=== PATIENT | female | born 1975 | race Hispanic/Latino ===

== ENCOUNTER → 2019-12-24 | Emergency (ER) | payer BC, OTHER ==
[~2019-12-24] VITALS: Ht 157.5 cm; Wt 90.7 kg
--- NOTE | 2019-12-24 11:44 | Emergency Department Note ---
History of Present Illnes History of Present Illness Chief Complaint: COVID PUI History of Present Illness This is a 44 year old female C/O COUGH, FEVER, N/V/D, MUSCLE ACHES, CHILLS, SORE THROAT ALL SYMPTOMS STARTED YESTERDAY. 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 Any updates have been documented here. Past Medical History Recent Fever: Yes Clinical Suspicion of Infectio: Yes New/Unexplained Change in Ment: No Past Medical History: Hypertension Past Surgical History: None Social History Smoking Cessation: Never Smoker Counseling Performed: No Any Illegal Drug Use: No TB Exposure/Symptoms: No Physically hurt or threatened: No Review of Systems Review of Systems Constitutional: Reports as per HPI EENTM: Reports no symptoms Cardiovascular: Reports no symptoms Respiratory: Reports as per HPI Gastrointestinal: Reports as per HPI Genitourinary: Reports no symptoms Musculoskeletal: Reports no symptoms Integumentary: Reports no symptoms Neurological: Reports no symptoms Psychological: Reports no symptoms Endocrine: Reports no symptoms Hematological/Lymphatic: Reports no symptoms Physical Exam Related Data Allergies: Coded Allergies: No Known Allergies (Unverified , 12/24/19) Triage Vital Signs Vital Signs Date Time Temp Pulse Resp B/P (MAP) Pulse Ox O2 Delivery O2 Flow Rate FiO2 12/24/19 11:23 100.5 103 20 138/91 100 Room Air Vital signs reviewed: Yes Physical Exam CONSTITUTIONAL Constitutional: Present well-developed, Present well-nourished HENT HENT: Present normocephalic, Present atraumatic, Present oropharynx clear/moist, Present nose normal HENT L/R: Present left ext ear normal, Present right ext ear normal EYES Eyes: Reports PERRL, Reports conjunctivae normal NECK Neck: Present ROM normal PULMONARY Pulmonary: Present effort normal, Present breath sounds normal CARDIOVASCULAR Cardiovascular: Present regular rhythm, Present heart sounds normal, Present capillary refill normal, Present normal rate GASTROINTESTINAL Abdominal: Present soft, Present nontender, Present bowel sounds normal GENITOURINARY Genitourinary: Present exam deferred SKIN Skin: Present warm, Present dry MUSCULOSKELETAL Musculoskeletal: Present ROM normal NEUROLOGICAL Neurological: Present alert, Present oriented x 3, Present no gross motor or sensory deficits PSYCHOLOGICAL Psychological: Present mood/affect normal, Present judgement normal Assessment & Plan Medical Decision Making MDM LIKELY COVID, ALREADY ON ZPAK, O2 SAT 100% ON RA. DR JACOB CALLED AND REQUESTS COVID SWAB Reassessment Reassessment DC HOME, SELF-QUARANTINE, PRONING, RTED PRN, WORK NOTE, TYLENOL/IBU DIRECTED Assessment & Plan Final Impression: (1) Viral syndrome Depart Disposition: HOME, SELF-CARE Last Vital Signs Date Time Temp Pulse Resp B/P (MAP) Pulse Ox O2 Delivery O2 Flow Rate FiO2 12/24/19 11:23 100.5 103 20 138/91 100 Room Air CURRY FOURNIER MD Dec 24, 2019 11:44
== END | disposition home or self-care (01) ==
LOC: ER 11:23
DX: U07.1 COVID-19 (principal); B34.9 Viral infection, unspecified; R50.9 Fever, unspecified; R05 Cough; I10 Essential (primary) hypertension
CPT/HCPCS: 99282; U0002

== ENCOUNTER 2020-02-04 18:16 | Observation (INO) | payer BC, OTHER ==
[~2020-02-04] VITALS: Ht 157.5 cm; Wt 89.4 kg
[2020-02-04] MEDS ORDERED: SODIUM CHLORIDE 0.9% 1000ML 1,000 ML IV STA (18:29)
[2020-02-04] MEDS ORDERED: ONDANSETRON HCL INJ 2MG/ML 2ML 2 MG/ML VIAL IV NR (18:29)
[2020-02-04] MEDS ORDERED: KETOROLAC TROMETHAMINE 30 MG/ML VIAL IV NR (18:30)
[2020-02-04] MEDS ORDERED: MORPHINE SULFATE INJ 4 MG/ML INJ 1ML IV PRN (18:30)
[2020-02-04 18:37] LABS: BASOPHILS % 0.4 % (0.0-1.0); EOSINOPHILS # (AUTO) 0.1 (0.0-0.4); EOSINOPHILS % 0.9 % (0.0-6.0); HEMATOCRIT 39.1 % (34.2-44.1); HEMOGLOBIN 13.1 g/dL (12.0-16.0); LYMPHOCYTES # (AUTO) 1.4 (1.0-3.2); LYMPHOCYTES % 20.2 % (18.0-39.1); MEAN CORPUSCULAR HEMOGLOBIN 30.1 pg (28-32); MEAN CORPUSCULAR HGB CONC 33.5 g/dL (31-35); MEAN CORPUSCULAR VOLUME 89.9 fL (81-99); MONOCYTES # (AUTO) 0.5 (0.2-0.8); MONOCYTES % 6.9 % (4.4-11.3); NEUTROPHILS # (AUTO) 4.8 (2.1-6.9); NEUTROPHILS % 71.5 % (38.7-80.0); PLATELET COUNT 221 x10e3/uL (140-360); RED BLOOD COUNT 4.35 x10e6/uL (3.6-5.1); RED CELL DISTRIBUTION WIDTH 13.1 % (11.7-14.4)
[2020-02-04 18:39] LABS: AMPHETAMINES SCREEN,URINE NEGATIVE (NEGATIVE); BENZODIAZEPINES SCREEN,URINE NEGATIVE (NEGATIVE); CLARITY,URINE SL CLOUDY (CLEAR); COLOR,URINE ORANGE (YELLOW); KETONES,URINE NEGATIVE (NEGATIVE); LEUKOCYTE ESTERASE ,URINE NEGATIVE (NEGATIVE); NITRITE,URINE NEGATIVE (NEGATIVE); PHENCYCLIDINE SCREEN,URINE NEGATIVE (NEGATIVE); PROTEIN,URINE DIPSTICK TRACE (NEGATIVE)
[2020-02-04 18:40] LABS: BILIRUBIN,URINE MODERATE (NEGATIVE)
[2020-02-04] MEDS ORDERED: PANTOPRAZOLE 40 MG 10ML VIAL IV STA (18:51)
[2020-02-04 18:59] LABS: ALANINE AMINOTRANSFERASE 128 IU/L (0-55); ALBUMIN 3.9 g/dL (3.5-5.0); ALBUMIN/GLOBULIN RATIO 1.1 (0.8-2.0); ALKALINE PHOSPHATASE 189 IU/L (40-150); ANION GAP 16.2 mmol/L (8-16); BLOOD UREA NITROGEN 8 mg/dL (7-26); BUN/CREATININE RATIO 11 (6-25); CALCIUM 8.7 mg/dL (8.4-10.2); CARBON DIOXIDE 23 mmol/L (22-29); CHLORIDE 104 mmol/L (98-107); CREATINE KINASE 125 IU/L (29-168); CREATININE, SERUM 0.75 mg/dL (0.57-1.11); EST GLOMERULAR FILTRATION RATE > 60 ML/MIN (60-); GLUCOSE 97 mg/dL (74-118); POTASSIUM 3.2 mmol/L (3.5-5.1); SODIUM 140 mmol/L (136-145)
[2020-02-04] MEDS ORDERED: DONNATAL/LIDOCAINE/MAALOX 30 ML SUSP PO ONE (19:00)
[2020-02-04 19:03] LABS: BACTERIA,URINE FEW /HPF; EPITHELIAL CELLS,URINE FEW /LPF; MUCUS,URINE MANY (RARE); WBC,URINE (MAN) 0-5 /HPF (0-5)
[2020-02-04] MEDS ORDERED: LIDOCAINE VISC 2% SOLN 15 ML UDC ONE (19:03)
[2020-02-04] MEDS ORDERED: BELLADONNA ALK/PHENOBARBITAL 5 ML UDC ONE (19:03)
[2020-02-04] MEDS ORDERED: MAGNESIUM/ALUMINUM/SIMETHICONE 30 ML UDC ONE (19:03)
--- NOTE | 2020-02-04 19:05 | Emergency Department Note ---
History of Present Illnes History of Present Illness Chief Complaint: Abdominal Complaints History of Present Illness This is a 44 year old female arrives to the ED with epigastric abdominal pain for several days. Patient states pain is worse after meals and she is having fevers/chills. Patient also complaining of significant heartburn all the symptoms are worsened with food. Chief Complaint Comment EPIGASTRIC PAIN RAD DOWNWARD SINCE . ALSO W/ BLOATING/NAUSEA. SAW DR BALDERAS ON , HAD BLOOD DRAWN, STS THERE WERE "ABNORMALITIES IN THE HEPATIC PANEL" GIVEN MEDS FOR DYSPEPSIA AND CONSTIPATION, IMPROVED INITIALLY BUT PAIN IS MUCH WORSE TODAY. Historian: Patient Arrival Mode: Car Onset (how long ago): day(s) Radiation: Reports non-radiation Severity: mild Onset quality: gradual Duration (how long): day(s) Timing of current episode: intermittent Progression: waxing and waning Chronicity: new Relieving factors: eating Exacerbating factors: eating Associated symptoms: Reports fever/chills Past Medical/Family History Physician Review I have reviewed the patient's past medical and family history. Any updates have been documented here. Past Medical History Recent Fever: No Clinical Suspicion of Infectio: Yes New/Unexplained Change in Ment: No Past Medical History: Hypertension Other Medical History: HIATAL HERNIA Past Surgical History: None Social History Smoking Cessation: Never Smoker Alcohol Use: None Any Illegal Drug Use: No Physically hurt or threatened: No Other Any Pre-Existing Lines (PICC,: No Review of Systems Review of Systems Constitutional: Reports no symptoms EENTM: Reports no symptoms Cardiovascular: Reports no symptoms Respiratory: Reports no symptoms Gastrointestinal: Reports as per HPI, Reports abdominal pain, Reports nausea; Denies vomiting Genitourinary: Reports no symptoms Musculoskeletal: Reports no symptoms Integumentary: Reports no symptoms Neurological: Reports no symptoms Psychological: Reports no symptoms Endocrine: Reports no symptoms Hematological/Lymphatic: Reports no symptoms Physical Exam Related Data Allergies: Coded Allergies: Penicillins (Verified Allergy, Unknown, 02/04/20) Triage Vital Signs Vital Signs Date Time Temp Pulse Resp B/P (MAP) Pulse Ox O2 Delivery O2 Flow Rate FiO2 02/04/20 18:24 98.1 99 18 180/113 100 Room Air Vital signs reviewed: Yes Physical Exam CONSTITUTIONAL Constitutional: Present well-developed, Present well-nourished HENT HENT: Present normocephalic, Present atraumatic, Present oropharynx clear/moist, Present nose normal HENT L/R: Present left ext ear normal, Present right ext ear normal EYES Eyes: Reports PERRL, Reports conjunctivae normal NECK Neck: Present ROM normal PULMONARY Pulmonary: Present effort normal, Present breath sounds normal CARDIOVASCULAR Cardiovascular: Present regular rhythm, Present heart sounds normal, Present capillary refill normal, Present normal rate GASTROINTESTINAL Abdominal: Present soft, Present bowel sounds normal, Present tender GENITOURINARY Genitourinary: Present exam deferred SKIN Skin: Present warm, Present dry MUSCULOSKELETAL Musculoskeletal: Present ROM normal NEUROLOGICAL Neurological: Present alert, Present oriented x 3, Present no gross motor or sensory deficits PSYCHOLOGICAL Psychological: Present mood/affect normal, Present judgement normal Results Laboratory Result Diagram: 02/04/20182402/04/201824 Laboratory Laboratory Tests Test 02/04/20 18:25 White Blood Count 6.69 x10e3/uL (4.8-10.8) Red Blood Count 4.35 x10e6/uL (3.6-5.1) Hemoglobin 13.1 g/dL (12.0-16.0) Hematocrit 39.1 % (34.2-44.1) Mean Corpuscular Volume 89.9 fL (81-99) Mean Corpuscular Hemoglobin 30.1 pg (28-32) Mean Corpuscular Hemoglobin Concent 33.5 g/dL (31-35) Red Cell Distribution Width 13.1 % (11.7-14.4) Platelet Count 221 x10e3/uL (140-360) Neutrophils (%) (Auto) 71.5 % (38.7-80.0) Lymphocytes (%) (Auto) 20.2 % (18.0-39.1) Monocytes (%) (Auto) 6.9 % (4.4-11.3) Eosinophils (%) (Auto) 0.9 % (0.0-6.0) Basophils (%) (Auto) 0.4 % (0.0-1.0) Neutrophils # (Auto) 4.8 (2.1-6.9) Lymphocytes # (Auto) 1.4 (1.0-3.2) Monocytes # (Auto) 0.5 (0.2-0.8) Eosinophils # (Auto) 0.1 (0.0-0.4) Basophils # (Auto) 0.0 (0.0-0.1) Absolute Immature Granulocyte (auto 0.01 x10e3/uL (0-0.1) Urine Color [place] (YELLOW) Urine Clarity Sl cloudy (CLEAR) Urine pH 6.5 (5 - 7) Urine Specific [place] >=1.030 (1.010-1.025) Urine Protein Trace (NEGATIVE) Urine Glucose (UA) Negative (NEGATIVE) Urine Ketones Negative (NEGATIVE) Urine Blood Negative (NEGATIVE) Urine Nitrite Negative (NEGATIVE) Urine Bilirubin Moderate (NEGATIVE) Urine Urobilinogen 4.0 mg/dL (0.2 - 1) Urine Leukocyte Esterase Negative (NEGATIVE) Sodium Level 140 mmol/L (136-145) Potassium Level 3.2 mmol/L (3.5-5.1) Chloride Level 104 mmol/L (98-107) Carbon Dioxide Level 23 mmol/L (22-29) Anion Gap 16.2 mmol/L (8-16) Blood Urea Nitrogen 8 mg/dL (7-26) Creatinine 0.75 mg/dL (0.57-1.11) Estimat Glomerular Filtration Rate > 60 ML/MIN (60-) BUN/Creatinine Ratio 11 (6-25) Glucose Level 97 mg/dL (74-118) Calcium Level 8.7 mg/dL (8.4-10.2) Total Bilirubin 2.9 mg/dL (0.2-1.2) Aspartate Amino Transf (AST/SGOT) 103 IU/L (5-34) Alanine Aminotransferase (ALT/SGPT) 128 IU/L (0-55) Alkaline Phosphatase 189 IU/L (40-150) Creatine Kinase 125 IU/L (29-168) Total Protein 7.6 g/dL (6.5-8.1) Albumin 3.9 g/dL (3.5-5.0) Globulin 3.7 g/dL (2.3-3.5) Albumin/Globulin Ratio 1.1 (0.8-2.0) Urine Opiates Screen Negative (NEGATIVE) Urine Methadone Screen Negative (NEGATIVE) Urine Barbiturates Screen Negative (NEGATIVE) Urine Phencyclidine Screen Negative (NEGATIVE) Urine Amphetamines Screen Negative (NEGATIVE) Urine Methamphetamines Screen Negative (NEGATIVE) Urine Benzodiazepines Screen Negative (NEGATIVE) Urine Cocaine Screen Negative (NEGATIVE) Urine Cannabinoids Screen Negative (NEGATIVE) Lab results reviewed: Yes Imaging Imaging results reviewed: Yes Impressions IMPRESSION: Findings concerning for acute cholecystitis. Recommend right upper quadrant ultrasound. Signed by: Sukumar Gomez DO on 02/04/2020 8:29 PM Assessment & Plan Medical Decision Making AMADO 44 F arrived to the ED with complaints of RUQ abdominal pain- CT findings concerning for acute anderson. Dr. Barry informed, patient kept nothing by mouth, ceftriaxone and Flagyl given. Patient started on maintenance fluids and pain medication ordered. Assessment & Plan Final Impression: (1) Gastritis (2) GERD (gastroesophageal reflux disease) (3) Acute cholecystitis Depart Disposition: ADMITTED Last Vital Signs Date Time Temp Pulse Resp B/P (MAP) Pulse Ox O2 Delivery O2 Flow Rate FiO2 02/04/20 18:50 99.1 87 17 167/78 100 Room Air Medications in the ED Morphine Sulfate 4 mg ONCE PRN IV SEVERE PAIN (7-10); Start 02/04/20 at 18:30; Stop 02/11/20 at 18:29 Ondansetron HCl 4 mg NOW IV Last administered on 02/04/20at 18:42; Admin Dose 4 MG; Start 02/04/20 at 18:29; Stop 02/04/20 at 19:59 Sodium Chloride 1,000 ml @ 0 mls/hr Q0M STAT IV Last administered on 02/04/20at 18:40; Admin Dose 999 MLS/HR; Start 02/04/20 at 18:29; Stop 02/04/20 at 18:30 Ketorolac Tromethamine 30 mg ONCE IV Last administered on 02/04/20at 18:42; Admin Dose 30 MG; Start 02/04/20 at 18:30; Stop 02/04/20 at 19:59 Pantoprazole Sodium 40 mg NOW STAT IV Last administered on 02/04/20 19:00; Admin Dose 40 MG; Start 02/04/20 at 18:51; Stop 02/04/20 at 18:52; Status UNV Belladonna Alkaloids/ Phenobarbital 10 ml ONCE ONCE PO Last administered on 02/04/20at 19:00; Admin Dose 10 ML; Start 02/04/20 at 19:00; Stop 02/04/20 at 19:01; Status UNV Lidocaine HCl 15 ml STK-MED ONCE .ROUTE ; Start 02/04/20 at 19:03; Stop 02/04/20 at 18:57; Status DC Belladonna Alkaloids/ Phenobarbital 10 ml STK-MED ONCE .ROUTE ; Start 02/04/20 at 19:03; Stop 02/04/20 at 18:57; Status DC Magnesium Aluminum Silicate 30 ml STK-MED ONCE .ROUTE ; Start 02/04/20 at 19:03; Stop 02/04/20 at 18:57; Status DC BRANDON MARTIN, Feb 04, 2020 19:05
--- OUTSIDE RECORDS SUMMARY | 2020-02-04 19:05 | XMS REPORT | Continuity of Care Document ---
Author Author [facility] t Organization [facility] Address [address] [place] [address] Phone Unavailable Care Team Providers Care Train System Operator Name Role Phone Unavailable Unavailable Payers Payer Name Policy Type Policy Number Effective Date Expiration Date S ource Problems This patient has no known problems. Allergies, Adverse Reactions, Alerts Allergy Name Allergy Type Status Severity Reaction(s) Onset Date Inacti ve Date Treating Clinician Comments Source Penicillins DA Active SV 2016-08-25 00:00:00 [facility] Medications This patient has no known medications. Procedures This patient has no known procedures. Results Test Description Test Time Test Comments Results Result Comments Source SCR MAMM BILATERAL NAHID CAD DIGITAL 2019-01-23 12:47:32 - SCR MAMM BILATERAL NAHID CAD DIGITALBILATERAL DIGITAL SCREENING MAMMOGRAM 3D/2D WITH CAD: 01/21/2019CLINICAL: Asymptomatic. Digital breast tomosynthesis was performed in addition to routine CC and MLO views. Current mammographic images were evaluated by either a [employer] M-Vu or a [employer] ImageChecker CAD (computer aided detection system). Comparison is made to exams dated 07/10/2017 mammogram, 04/14 mammogram, and 09/02/2013 mammogram - [facility]. There are scattered fibroglandular tissues in both breasts. No suspicious mass, architectural distortion, malignant type calcification, or lymph node abnormality detected. Breast architecture is stable compared to prior exams.IMPRESSION: NEGATIVEThere is no mammographic evidence of malignancy. Resume annual screening mammography in one year. Jacob Manning M.D. ss/penrad:01/23/2019 12:47:32 Infant Teacher: [facility] sent: BIRADS 1-2 Normal Mammogram BI-RADS: 1 Negative
[2020-02-04] MEDS ORDERED: SODIUM CHLORIDE 0.9% 50ML 50 ML ONE (19:26)
[2020-02-04] MEDS ORDERED: IOPAMIDOL 370 MG/ML 200 ML INFUS..BTL INJ ONE (19:26)
--- NOTE | 2020-02-04 19:28 | Diagnostic Imaging Report ---
EXAMINATION: CHEST SINGLE (PORTABLE) INDICATION: Abdominal pain COMPARISON: None FINDINGS: TUBES and LINES: None. LUNGS: Normal lung volumes. Lungs are clear. No consolidations. PLEURA: No pleural effusion or pneumothorax. HEART AND MEDIASTINUM: Cardiac size is borderline enlarged. BONES AND SOFT TISSUES: No acute osseous lesion. Soft tissues are unremarkable. Degenerative changes. UPPER ABDOMEN: No free air under the diaphragm. IMPRESSION: Borderline cardiomegaly. Signed by: Sukumar Gomez DO on 02/04/2020 7:25 PM
--- NOTE | 2020-02-04 20:33 | Diagnostic Imaging Report ---
EXAM: CT Abdomen and Pelvis WITH contrast INDICATION: Epigastric pain radiating downward COMPARISON: None. TECHNIQUE: Abdomen and pelvis were scanned utilizing a multidetector helical scanner from the lung base to the pubic symphysis after administration of IV contrast. Coronal and sagittal reformations were obtained. Routine protocol was performed. Scan was performed when during portal venous phase. IV CONTRAST: 100 mL of Isovue 370 ORAL CONTRAST: None COMPLICATIONS: None RADIATION DOSE: Total DLP: 666 mGy*cm Estimated effective dose: (DLP x 0.015 x size factor) mSv CTDIvol has been reviewed. It is below the limits set by the Radiation Protocol Committee (RPC). Dose modulation, iterative reconstruction, and/or weight based adjustment of the mA/kV was utilized to reduce the radiation dose to as low as reasonably achievable. FINDINGS: LINES and TUBES: None. LOWER THORAX: Subtle right basilar haziness/atelectasis. HEPATOBILIARY: No focal hepatic lesions. No biliary ductal dilation. GALLBLADDER: The bladder wall thickening, mucosal hyperenhancement, trace pericholecystic fat stranding. Possible stone in the gallbladder neck. Mild gallbladder distention. SPLEEN: No splenomegaly. PANCREAS: No focal masses or ductal dilatation. ADRENALS: No adrenal nodules KIDNEYS/URETERS: Kidneys enhance symmetrically. No hydronephrosis. No cystic or solid mass lesions. No stones. GI TRACT: No abnormal distention, wall thickening, or evidence of bowel obstruction. Appendix is normal. PELVIC ORGANS/BLADDER: Mildly enlarged uterus with multiple fibroids. Intrauterine device appears appropriately positioned within the endometrial cavity. No adnexal masses. Urinary bladder unremarkable. LYMPH NODES: No lymphadenopathy. VESSELS: Unremarkable. PERITONEUM / RETROPERITONEUM: No free air or fluid. BONES: Degenerative changes. SOFT TISSUES: Unremarkable. IMPRESSION: Findings concerning for acute cholecystitis. Recommend right upper quadrant ultrasound. Signed by: Sukumar Gomez DO on 02/04/2020 8:29 PM
[2020-02-04] MEDS ORDERED: CEFTRIAXONE SOD 1 GM/NS 50 ML 50 ML IV STA (20:56)
[2020-02-04] MEDS ORDERED: METRONIDAZOLE 750MG/NS 150ML 150 ML IV STA (20:56)
[2020-02-04] MEDS ORDERED: ONDANSETRON HCL INJ 2MG/ML 2ML 2 MG/ML VIAL IV PRN (21:00)
[2020-02-04] MEDS ORDERED: MORPHINE SULFATE 2 MG/ML SYR 1ML IV PRN (21:00)
--- OUTSIDE RECORDS SUMMARY | 2020-02-04 21:07 | XMS REPORT | Continuity of Care Document ---
Author Author [facility] t Organization [facility] Address [address] [place] [address] Phone Unavailable Care Team Providers Care Photogrammetric Tech Name Role Phone Anshu MARTIN Unavailable Payers Payer Name Policy Type Policy Number Effective Date Expiration Date S ource Problems This patient has no known problems. Allergies, Adverse Reactions, Alerts Allergy Name Allergy Type Status Severity Reaction(s) Onset Date Inacti ve Date Treating Clinician Comments Source Penicillins DA Active SV 2016-08-25 00:00:00 [facility] Medications This patient has no known medications. Procedures This patient has no known procedures. Results Test Description Test Time Test Comments Results Result Comments Source CT ABDOMEN/PELVIS W 2020-02-04 20:26:00 [facility] [address] [address] Patient Name: MAURA JOYCE MR #: [id number] : 1975 Age/Sex: 44/F Req #: [id number] Adm Physician: Ordered by: BRANDON MARTIN DO Report #: [id number] Location: ER Room/Bed: Procedure: [id number] CT/CT ABDOMEN/PELVIS W Exam Date: 02/04/20 Exam Time: 1924 REPORT STATUS: Signed EXAM: CT Abdomen and Pelvis WITH contrast INDICATION: Epigastric pain radiating downward COMPARISON: None. TECHNIQUE: Abdomen and pelvis were scanned utilizing a multidetector helical scanner from the lung base to the pubic symphysis after administration of IV contrast. Coronal and sagittal reformations were obtained. Routine protocol was performed. Scan was performed when during portal venous phase. IV CONTRAST: 100 mL of Isovue 370 ORAL CONTRAST: None COMPLICATIONS: None RADIATION DOSE: Total DLP: 666 mGy*cm Estimated effective dose: (DLP x 0.015 x size factor) mSv CTDIvol has been reviewed. It is below the limits set by the Radiation Protocol Committee (RPC). Dose modulation, iterative reconstruction, and/or weight based adjustment of the mA/kV was utilized to reduce the radiation dose to as low as reasonably achievable. FINDINGS: LINES and TUBES: None. LOWER THORAX: Subtle right basilar haziness/atelectasis. HEPATOBILIARY: No focal hepatic lesions. No biliary ductal dilation. GALLBLADDER: The bladder wall thickening, mucosal hyperenhancement, trace pericholecystic fat stranding. Possible stone in the gallbladder neck. Mild gallbladder distention. SPLEEN: No splenomegaly. PANCREAS: No focal masses or ductal dilatation. ADRENALS: No adrenal nodules KIDNEYS/URETERS: Kidneys enhance symmetrically. No hydronephrosis. No cystic or solid mass lesions. No stones. GI TRACT: No abnormal distention, wall thickening, or evidence of bowel obstruction. Appendix is normal. PELVIC ORGANS/BLADDER: Mildly enlarged uterus with multiple fibroids. Intrauterine device appears appropriately positioned within the endometrial cavity. No adnexal masses. Urinary bladder unremarkable. LYMPH NODES: No lymphadenopathy. VESSELS: Unremarkable. PERITONEUM / RETROPERITONEUM: No free air or fluid. BONES: Degenerative changes. SOFT TISSUES: Unremarkable. IMPRESSION: Findings concerning for acute cholecystitis. Recommend right upper quadrant ultrasound. Signed by: Sukumar Gomez DO on 02/04/2020 8:29 PM Dictated By: SUKUMAR GOMEZ DO 28 Transcribed By: PEDRO on 02/04/202028 COPY TO: BRANDON MARTIN DO CHEST SINGLE (PORTABLE) 2020-02-04 19:25:[address] [address] Patient Name: MAURA JOYCE MR #: [id number] : 1975 Age/Sex: 44/F Req #: [id number] Adm Physician: Ordered by: BRANDON MARTIN DO Report #: [id number] Location: ER Room/Bed: Procedure: [id number] DX/CHEST SINGLE (PORTABLE) Exam Date: 02/04/20 Exam Time: 1845 REPORT STATUS: Signed EXAMINATION: CHEST SINGLE (PORTABLE) INDICATION: Abdominal pain COMPARISON: None FINDINGS: TUBES and LINES: None. LUNGS: Normal lung volumes. Lungs are clear. No consolidations. PLEURA: No pleural effusion or pneumothorax. HEART AND MEDIASTINUM: Cardiac size is borderline enlarged. BONES AND SOFT TISSUES: No acute osseous lesion. Soft tissues are unremarkable. Degenerative changes. UPPER ABDOMEN: No free air under the diaphragm. IMPRESSION: Borderline cardiomegaly. Signed by: Sukumar Gomez DO on 02/04/2020 7:25 PM Dictated By: SUKUMAR GOMEZ DO 24 Transcribed By: PEDRO on 02/04/201924 COPY TO: BRANDON MARTIN DO SCR MAMM BILATERAL NAHID CAD DIGITAL 2019-01-23 12:47:32 - SCR MAMM BILATERAL NAHID CAD DIGITALBILATERAL DIGITAL SCREENING MAMMOGRAM 3D/2D WITH CAD: 01/21/2019CLINICAL: Asymptomatic. Digital breast tomosynthesis was performed in addition to routine CC and MLO views. Current mammographic images were evaluated by either a [employer] M-Vu or a [employer] ImageChecker CAD (computer aided detection system). Comparison is made to exams dated 07/10/2017 mammogram, 04/14 mammogram, and 09/02/2013 mammogram - [facility] There are scattered fibroglandular tissues in both breasts. No suspicious mass, architectural distortion, malignant type calcification, or lymph node abnormality detected. Breast architecture is stable compared to prior exams.IMPRESSION: NEGATIVEThere is no mammographic evidence of malignancy. Resume annual screening mammography in one year. Jacob Manning M.D. ss/rich:01/23/2019 12:47:32 Case Management Associate: Agnes Russell, [facility] sent: BIRADS 1-2 Normal Mammogram BI-RADS: 1 Negative
[2020-02-04] MEDS ORDERED: METRONIDAZOLE 500MG/NS 100ML 100 ML IV ONE (21:14)
[2020-02-04] MEDS: D5.45%NS/KCL 20MEQ 1,000 ML IV SCH (21:20)
[2020-02-04] MEDS ORDERED: HYDROMORPHONE 1MG/1ML INJ IV PRN (21:30)
[2020-02-04] MEDS: METRONIDAZOLE 500MG/NS 100ML 100 ML IV SCH (22:05)
[2020-02-04] MEDS: PANTOPRAZOLE 40 MG 10ML VIAL IV SCH (22:27)
--- NOTE | 2020-02-04 23:33 | Diagnostic Imaging Report ---
EXAM: Right Upper Quadrant Ultrasound with Doppler INDICATION: acute anderson COMPARISON: Same-day abdominal CT. TECHNIQUE: Transverse and longitudinal images of the right upper abdomen were obtained. FINDINGS: Liver: Size: 14.8 cm in the right midclavicular line, normal Appearance: Normal echogenicity, smooth contour Mass: No focal masses Gallbladder: Stones/Sludge: Multiple gallstones and sludge Wall: 0.54 cm, thickened and heterogeneous Appearance: No pericholecystic fluid or hydrops. Sonographic Russo's Sign: Negative, although patient has been medicated Bile Ducts: Intrahepatic Ducts: No dilatation Extrahepatic Ducts: Common bile duct measures 0.5 cm, no dilatation Pancreas: Visualized portions of the pancreatic head, neck and proximal body are normal. Right Kidney: Size: 12.3 cm Echogenicity: Normal Parenchymal thickness: Normal Collecting system: No hydronephrosis Stones: None Cyst/Mass: None Vessels: Main Portal Vein: Diameter: 0.9 cm, normal. Normal flow direction. Aorta: Visualized portions are normal Inferior Vena Cava: Visualized portions are normal Free Fluid: No ascites or pleural effusion IMPRESSION: Multiple gallstones and sludge. Thickened gallbladder wall can be seen with cholecystitis, however the gallbladder is not overly distended, therefore cystic duct obstruction is unlikely. Chronic cholecystitis is suspected. Signed by: Sukumar Gomez DO on 02/04/2020 11:30 PM
[2020-02-05] MEDS ORDERED: MELATONIN 5 MG TABLET PO PRN (00:15)
[2020-02-05] MEDS ORDERED: DOCUSATE SODIUM 100 MG CAP PO PRN (00:15)
[2020-02-05] MEDS ORDERED: HYDRALAZINE HCL 20 MG/ML VIAL IV PRN (00:15)
[2020-02-05] MEDS: D5.45%NS/KCL 20MEQ 1,000 ML IV SCH ×2 (05:01→17:11)
[2020-02-05] MEDS: METRONIDAZOLE 500MG/NS 100ML 100 ML IV SCH ×3 (05:55→21:46)
[2020-02-05 06:45] LABS: BASOPHILS % 0.8 % (0.0-1.0); EOSINOPHILS % 1.1 % (0.0-6.0); HEMATOCRIT 33.5 % (34.2-44.1); LYMPHOCYTES # (AUTO) 0.8 (1.0-3.2); LYMPHOCYTES % 21.2 % (18.0-39.1); MEAN CORPUSCULAR HEMOGLOBIN 29.7 pg (28-32); MEAN CORPUSCULAR HGB CONC 32.8 g/dL (31-35); MEAN CORPUSCULAR VOLUME 90.5 fL (81-99); MONOCYTES # (AUTO) 0.4 (0.2-0.8); MONOCYTES % 9.9 % (4.4-11.3); NEUTROPHILS # (AUTO) 2.5 (2.1-6.9); NEUTROPHILS % 66.7 % (38.7-80.0); PLATELET COUNT 192 x10e3/uL (140-360); RED CELL DISTRIBUTION WIDTH 13.4 % (11.7-14.4)
[2020-02-05 07:11] LABS: ALANINE AMINOTRANSFERASE 109 IU/L (0-55); ALKALINE PHOSPHATASE 152 IU/L (40-150); ANION GAP 10.6 mmol/L (8-16); BLOOD UREA NITROGEN 5 mg/dL (7-26); BUN/CREATININE RATIO 8 (6-25); CALCIUM 7.8 mg/dL (8.4-10.2); CARBON DIOXIDE 22 mmol/L (22-29); CHLORIDE 108 mmol/L (98-107); CREATININE, SERUM 0.65 mg/dL (0.57-1.11); EST GLOMERULAR FILTRATION RATE > 60 ML/MIN (60-); GLUCOSE 102 mg/dL (74-118); POTASSIUM 3.6 mmol/L (3.5-5.1); SODIUM 137 mmol/L (136-145)
--- NOTE | 2020-02-05 07:15 | NUR ---
met pt, aaox4. denies any pain or discomfort at this time. aware of npo status. states understanding. pt updated plan of care. ivf's running. boards updated. vss.
--- NOTE | 2020-02-05 07:33 | NUR ---
pt npo, pt per OR to have surgery around 10-11 am today.
--- NOTE | 2020-02-05 08:12 | NUR ---
consent on chart
--- NOTE | 2020-02-05 10:07 | NUR ---
OLIVIA ABAD HERE TO SEE PT
[2020-02-05] MEDS ORDERED: BUPIVACAINE 0.25%/EPI 30ML SDV INJ ONE (11:47)
[2020-02-05] MEDS ORDERED: IOPAMIDOL 300MG/ML 50ML INFUS..BTL IV ONE (11:47)
[2020-02-05] MEDS ORDERED: NEOSTIGMINE 1 MG/ML 10ML VIAL ONE ×2 (12:21→18:21)
[2020-02-05] MEDS ORDERED: GLYCOPYRROLATE 0.2 MG/ML VIAL ONE (12:36)
--- NOTE | 2020-02-05 14:59 | Operative Report ---
DATE OF PROCEDURE: 02/05/2020 SURGEON: Kael Barry MD PREOPERATIVE DIAGNOSES: Cholecystitis, cholelithiasis, and abnormal liver function tests, rule out common bile duct stone. POSTOPERATIVE DIAGNOSES: Cholecystitis, cholelithiasis, and choledocholithiasis. Bilateral ovarian cysts. OPERATION PERFORMED: 1. Laparoscopic cholecystectomy with intraoperative cholangiograms. 2. Drainage of bilateral ovarian cysts. ANESTHESIA: General. COMPLICATIONS: None. ESTIMATED BLOOD LOSS: Minimal. DESCRIPTION OF PROCEDURE: With the patient lying in bed in the supine position under good general endotracheal anesthesia, the abdomen was prepped with Betadine solution and draped in the usual manner. A Veress needle was introduced into the umbilicus and pneumoperitoneum was established without any difficulty. An 11 mm trocar was placed into the umbilicus and a 10 mm video laparoscope was placed into the intra-abdominal cavity. Under direct vision, three 5 mm trocars were placed in the right subcostal region. Video laparoscopy at this point revealed a gallbladder that was edematous and somewhat distended. The common duct was a larger caliber than normal and the common duct was similarly somewhat enlarged. Further exploration of the abdomen revealed the patient to have bilateral simple ovarian cysts, both of which were drained endoscopically by removing a small section of the cyst wall. There was absolutely no bleeding from the drainage of the two cysts. The rest of the abdominal exploration was otherwise within normal limits. The peritoneum overlying the neck of the gallbladder was then opened and the cystic duct was identified. The cystic duct was followed to its junction with the common duct. The cystic duct was then circumferentially dissected and a clip was placed at the neck of the gallbladder. A small opening was made into the cystic duct and a cholangiocath was introduced without any problems. The cystic duct cholangiocath was then introduced and using half-strength dye, the biliary tree was injected. This showed that there was no of flow of dye into the duodenum. There was a small meniscus sign at the very tip of the distal common duct representing a small impacted stone in the distal common duct. The rest of the cholangiogram was otherwise within normal limits. The cholangiocath was then removed and the cystic duct was then ligated with an Endoloop of 0 PDS and two clips. The cystic artery was similarly divided with two clips, and the gallbladder was then slowly and carefully taken off the liver bed using the cautery scissors. The hemostasis was ascertained. The gallbladder was grasped through the umbilical port and removed without any difficulty. Video laparoscopy was then again carried out. The liver bed was found to be perfectly dry. All the excess fluid was aspirated. The pneumoperitoneum was evacuated and all the trocars were removed under direct vision. The midline fascia at the umbilicus was then closed with a [id number] 0 Vicryl. All layers were infiltrated on the way out with solution of 0.25% Marcaine. Subcutaneous tissue was approximated with 3-0 Vicryl and the skin was closed with subcuticular 5-0 Vicryl. Benzoin, Steri-Strips and Band-Aids were applied. The sponge, lap, and needle count was correct. The patient tolerated the procedure well and returned to the recovery room in stable condition. MD ELIZABETH Allen/MONIKA /[id number]
[2020-02-05 15:24] VITALS: BP 139/70
[2020-02-05] MEDS ORDERED: FENTANYL CITRATE/PF 100MCG/2 ML INJ ONE (15:26)
[2020-02-05] MEDS ORDERED: MORPHINE SULFATE INJ 10 MG/ML ONE (15:26)
[2020-02-05] MEDS ORDERED: MIDAZOLAM HCL 2 MG/2 ML VIAL ONE (15:26)
[2020-02-05 16:00] VITALS: BP 139/70
[2020-02-05] MEDS ORDERED: AMLODIPINE BESYL5 MG PO (17:10)
[2020-02-05] MEDS ORDERED: BIOTIN1 MG (17:10)
[2020-02-05] MEDS ORDERED: OMEPRAZOLE20 M2 PO (17:10)
[2020-02-05] MEDS: CEFTRIAXONE SOD 1 GM/NS 50 ML 50 ML IV SCH (17:11)
--- NOTE | 2020-02-05 17:17 | NUR ---
Received patient from PACU at 1522 after taking report from Gifty Patient was assessed, oriented to room, procedures, and plan of care. Patient has 4 puncture sites on abdomen covered with bandaids and a C/D/I dressing to the left hip. Patient has a 20g left AC IV and dressing is C/D/I. Patient has no other issues or complaints at this time.
[2020-02-05] MEDS ORDERED: GLYCOPYRROLATE INJ 0.2 MG/ML VIAL ONE (18:21)
[2020-02-05] MEDS ORDERED: CEFTRIAXONE SOD 1 GM VIAL ONE (18:21)
[2020-02-05] MEDS ORDERED: ONDANSETRON HCL INJ 2MG/ML 2ML 2 MG/ML VIAL ONE (18:21)
[2020-02-05] MEDS ORDERED: LIDOCAINE HCL 2% LOCAL INJ 5 ML SDV VIAL INJ ONE (18:21)
[2020-02-05] MEDS ORDERED: KETOROLAC TROMETHAMINE 30 MG/ML VIAL ONE (18:21)
[2020-02-05] MEDS ORDERED: SUCCINYLCHOLINE CHLORIDE 20 MG/ML 10ML VIAL ONE (18:21)
[2020-02-05] MEDS ORDERED: PROPOFOL IV EMULSION 10 MG/ML 20 ML VIAL ONE (18:21)
[2020-02-05] MEDS ORDERED: SEVOFLURANE INHAL SOLN 250 ML PEN BTL ONE (18:21)
--- NOTE | 2020-02-05 19:05 | Consultation ---
DATE OF CONSULTATION: 02/05/2020 HISTORY OF PRESENT ILLNESS: This is 44 years old who apparently has problems with gallstones and had cholecystectomy with intraoperative cholangiogram today, which shows possible stones in the ampulla. She notice of being jaundiced. Her bilirubin was about 2.9 yesterday and down to 1.4. GI consult was obtained for possible ERCP. PAST MEDICAL HISTORY: Otherwise really history of hypertension. MEDICATIONS: Amlodipine and omeprazole. ALLERGIES: PENICILLIN. SOCIAL HISTORY: No alcohol use. FAMILY HISTORY: Noncontributory. REVIEW OF SYSTEMS: Denies any chest pain or shortness of breath. Denies any dysphagia or odynophagia. Denies any dysuria, hematuria, or any kind of syncopal episode. PHYSICAL EXAMINATION: GENERAL: Awake, alert, appears to be stable, not in any acute distress at this point. VITAL SIGNS: Afebrile, currently with stable vital signs. HEAD, EYES, EARS, NOSE, and THROAT: Normocephalic, sclerae is anicteric. NECK: Supple. HEART: Regular. ABDOMEN: Soft. EXTREMITIES: No clubbing. LAB VALUES: WBC 3.72, hemoglobin of 11.0. Bilirubin 1.4, AST of 80, ALT 109, alkaline phosphatase 152. IMPRESSION: Gallstone with possible occult choledocholithiasis. The patient had cholecystectomy earlier . RECOMMENDATIONS: We will proceed with ERCP tomorrow for further evaluations and management. The risks and benefit of ERCP have been discussed with the patient in detail. The patient understand risks of bleeding, infection, perforation as well as pancreatitis and see if she wants to proceed. MD MIHAI Jin/MODL /[id number] cc: MD Kael Rubio MD
--- NOTE | 2020-02-05 19:09 | NUR ---
RECEIVED BEDSIDE SHIFT REPORT FROM PREVIOUS NURSE. CALL LIGHT WITHIN REACH. PATIENT IN BED. PATIENT IN NO DISTRESS OR PAIN
[2020-02-05] MEDS: HYDROMORPHONE 1MG/1ML INJ IV PRN (19:41)
[2020-02-05] MEDS: ONDANSETRON HCL INJ 2MG/ML 2ML 2 MG/ML VIAL IV PRN (19:41)
[2020-02-05 19:42] VITALS: BP 139/70
[2020-02-05 20:00] VITALS: BP 116/62
[2020-02-05 20:31] VITALS: BP 116/62
[2020-02-05] MEDS: PANTOPRAZOLE 40 MG 10ML VIAL IV SCH (21:46)
[2020-02-06] VITALS (7 sets, daily range): BP systolic 118–146; BP diastolic 66–91
--- NOTE | 2020-02-06 02:12 | History and Physical ---
CHIEF COMPLAINT: Abdominal pain. TIME OF EVALUATION: Approximately around 1:30 p.m. HISTORY OF PRESENT ILLNESS: A 44-year-old female, morbidly obese. She came in with complaints of 4-5 days history of right upper quadrant abdominal pain. She reports initially with epigastric in nature and radiated to the left upper quadrant. She has associated nausea, vomiting, but no fever at home. Decreased oral intake. No chest pain or any palpitations. Imaging studies consistent with acute cholecystitis. General Surgery was consulted. The patient underwent laparoscopic cholecystectomy. The patient was seen and evaluated in the PACU, currently doing well with no other issues at this time. Vital signs are stable during my evaluation. REVIEW OF SYSTEMS: Pertinent positives: Epigastric abdominal pain, decreased oral intake, nausea, vomiting. The rest of 14-point review of systems are reviewed with the patient and are negative. ALLERGIES: PENICILLIN. HOME MEDICATIONS: 1. Amlodipine. 2. Omeprazole. PAST MEDICAL HISTORY: Morbid obesity, hypertension, acid reflux. PAST SURGICAL HISTORY: Reports none. FAMILY HISTORY: Hypertension and diabetes. SOCIAL HISTORY: No drugs. No alcohol. Does not smoke. Good social support. PHYSICAL EXAMINATION: VITAL SIGNS: Temperature is 98.1, pulse is 77, respiratory rate is 20, blood pressure 139/70, pulse ox 100% on room air. GENERAL: Not in acute distress. Alert and oriented x3. Cooperative on examination. HEENT: Head; normocephalic, atraumatic. Eyes; pupils are equal, round, and reactive to light bilaterally. Extraocular movements intact bilaterally. Throat; no evidence of erythema or exudates in the posterior pharynx. Has poor dentition. NECK: Supple. Good range of motion. PULMONARY: Clear to auscultation bilaterally. No wheezing, no rales, no rhonchi, no crackles appreciated. CARDIOVASCULAR: Positive S1 and S2. No murmurs, rubs, or gallops appreciated. ABDOMEN: Soft, nondistended, and nontender to palpation. Bowel sounds present. MUSCULOSKELETAL: Strength is 5/5 throughout. No evidence of any muscle deficits on examination. No weakness appreciated. NEUROLOGIC: Cranial nerve II through XII grossly intact. No evidence of any neurological deficits on exam. SKIN: Intact. Warm to touch. Good cap refill. PSYCHIATRIC: Normal affect and mood. EXTREMITIES: No edema. Good range of motion throughout. LABORATORY DATA: Show white count 8.7, hemoglobin 11, hematocrit 33, platelets of 192. Chemistry; sodium 137, potassium 3.6, chloride 108, bicarb 22, anion gap of 10, BUN is 5, creatinine is 0.165. Calcium is 7.8, total bilirubin is 2.9 downtrended to 1.4, AST 80, ALT 109, alkaline phosphatase 152. Troponins were negative. Lipase was 19. Urinalysis negative. Urine drug screen negative. Coronavirus is pending. MICROBIOLOGY: None. IMAGING STUDIES: Gallbladder ultrasound consistent with multiple gallstones and sludge present. Thickened gallbladder wall can be seen with cholecystitis, less likely chronic, cholecystitis is suspected. CT abdomen and pelvis shows no acute cholecystitis. Chest x-ray was found to be negative. IMPRESSION: 1. Acute cholecystitis, status post laparoscopic cholecystectomy. 2. Nausea/vomiting/dehydration. 3. Hypertension. PLAN: At this time, the patient has been seen postoperatively. She is currently doing well with no complaints. She is still n.p.o. Pain control, IV fluids. I spoke with General surgery, which they have been consulted and apparently the patient does need an ERCP, in which GI has been consulted already. She did have a cholangiogram that shows evidence of obstruction and which now GI is consulted for ERCP, which is scheduled for tomorrow. We are going to put SCDs for now. Hold anticoagulation for procedure tomorrow and recent surgery. Continue with pain control. Monitor very closely. Put on cardiac telemetry. She is on IV antibiotics as well. Otherwise, continue same plan of care and monitor closely. MD GOLDEN Ridley/MONIKA /[id number]
[2020-02-06 05:13] LABS: BASOPHILS % 0.3 % (0.0-1.0); EOSINOPHILS % 0.3 % (0.0-6.0); HEMATOCRIT 36.2 % (34.2-44.1); HEMOGLOBIN 11.7 g/dL (12.0-16.0); LYMPHOCYTES # (AUTO) 0.7 (1.0-3.2); LYMPHOCYTES % 10.4 % (18.0-39.1); MEAN CORPUSCULAR HEMOGLOBIN 29.5 pg (28-32); MEAN CORPUSCULAR HGB CONC 32.3 g/dL (31-35); MEAN CORPUSCULAR VOLUME 91.2 fL (81-99); MONOCYTES # (AUTO) 0.4 (0.2-0.8); MONOCYTES % 6.3 % (4.4-11.3); NEUTROPHILS # (AUTO) 5.2 (2.1-6.9); NEUTROPHILS % 82.5 % (38.7-80.0); PLATELET COUNT 183 x10e3/uL (140-360); RED BLOOD COUNT 3.97 x10e6/uL (3.6-5.1); RED CELL DISTRIBUTION WIDTH 13.2 % (11.7-14.4)
[2020-02-06] MEDS: METRONIDAZOLE 500MG/NS 100ML 100 ML IV SCH ×3 (05:17→21:11)
[2020-02-06] MEDS: ONDANSETRON HCL INJ 2MG/ML 2ML 2 MG/ML VIAL IV PRN (05:18)
[2020-02-06] MEDS: D5.45%NS/KCL 20MEQ 1,000 ML IV SCH ×4 (05:18→23:04)
[2020-02-06] MEDS: HYDROMORPHONE 1MG/1ML INJ IV PRN ×3 (05:18→15:49)
[2020-02-06 06:00] LABS: ALANINE AMINOTRANSFERASE 121 IU/L (0-55); ALBUMIN 3.1 g/dL (3.5-5.0); ALKALINE PHOSPHATASE 161 IU/L (40-150); ANION GAP 13.4 mmol/L (8-16); BLOOD UREA NITROGEN < 5 mg/dL (7-26); CALCIUM 7.9 mg/dL (8.4-10.2); CARBON DIOXIDE 21 mmol/L (22-29); CHLORIDE 105 mmol/L (98-107); CREATININE, SERUM 0.61 mg/dL (0.57-1.11); EST GLOMERULAR FILTRATION RATE > 60 ML/MIN (60-); GLUCOSE 104 mg/dL (74-118); POTASSIUM 3.4 mmol/L (3.5-5.1); SODIUM 136 mmol/L (136-145)
[2020-02-06 06:02] LABS: BUN/CREATININE RATIO 8 (6-25)
--- NOTE | 2020-02-06 06:35 | NUR ---
CALLED DR. NOLAN TO LET HIM KNOW THAT THE PATIENT IS COVID POSITIVE. HE SAID MAKE SURE THE PATIENT GETS TRANSFERRED TO ANOTHER ROOM
--- NOTE | 2020-02-06 06:47 | NUR ---
CALLED. DR. SOLIS OFFICE AND RELAYED THE MESSAGE THAT THE PATIENT IS COVID POSITIVE.
--- NOTE | 2020-02-06 06:50 | NUR ---
DR. Jacques PABLO CALLED AND SAID THE PATIENT WAS COVID POSITIVE A MONTH AND HALF AGO SO KEEP THE PATIENT.
--- NOTE | 2020-02-06 07:21 | NUR ---
GAVE BEDSIDE SHIFT REPORT TO ONCOMING NURSE. CALL LIGHT WITHIN REACH. PATIENT IN BED. HOURLY ROUNDING PERFORMED
[2020-02-06] MEDS: AMLODIPINE BESYLATE 5 MG TAB PO SCH (08:55)
[2020-02-06] MEDS ORDERED: IOPAMIDOL 300MG/ML 50ML INFUS..BTL IV ONE (10:50)
[2020-02-06] MEDS: CEFTRIAXONE SOD 1 GM/NS 50 ML 50 ML IV SCH (13:14)
--- NOTE | 2020-02-06 13:53 | Diagnostic Imaging Report ---
Fluoroscopic guidance for ERCP Total dose: 30.4mGy Fluoro time: 44 seconds Fluoroscopic guidance was provided in the endoscopy suite for ERCP. The radiologist was not present for this examination. Images are reviewed retrospectively. Fluoroscopic images demonstrate endoscopic cannulation of the common bile duct with subsequent balloon sweep. Final images demonstrate no filling defect in the common bile duct. For further details, please refer to the detailed endoscopic report. Signed by: July Govea MD on 02/06/2020 1:50 PM
--- NOTE | 2020-02-06 14:32 | NUR ---
Patient had a successful ERCP on 02/05 and the stone was removed. Patient is advancing to clear liquids and doing well. She is up in room walking and passing gas.
--- NOTE | 2020-02-06 15:07 | NUR ---
Nutrition Screen Note RD Recommendation for Physician: - As feasible, ADAT to goal of GI Soft, Low fat, Low cholesterol Plan of Care: RD following, monitoring for tolerance and adequacy Nutrition reason for involvement: MST2 Primary Diagnose(s): acute cholecystitis PMH: obesity, HTN, acid reflux Ht: 62 in Wt: 197 lb BMI: 36 kg/m2 IBW: [address] Assessment: 02/05: 44 YOF admitted for acute cholecystitis requiring cholecystectomy. Pt evaluated today per MST2 screen. Pt s/p ERCP today, attempted to call room x 2- no answer. Noted decreased po intake [employer] related to current condition. Pt with no significant wt loss per admit wt of 200 lb on 12/23. Pt now on CLD, tolerance pending. Labs and meds reviewed. Chart reviewed. Will continue to monitor. Current Diet: CLD Malnutrition Evaluation (02/06/20) The patient does not meet criteria for a specified degree of malnutrition at this time. Will re-evaluate at follow-up as appropriate. Diet Education Needs Assessment: Diet education not indicated at this time, pt on transitionary diet. Diet tolerance: pending Nutrition Care Level: low Signed: Reena Meneses RD, LD, [facility]
--- NOTE | 2020-02-06 18:05 | Operative Report ---
DATE OF PROCEDURE: 02/06/2020 SURGEON: Wally Morrow MD PROCEDURE: ERCP with sphincterotomy and stone extraction. PREOPERATIVE DIAGNOSIS: Bile duct stones. POSTOPERATIVE DIAGNOSIS: Bile duct stones. PROCEDURE IN DETAIL: Risks and benefits were discussed with the patient prior to the procedure. The patient understands risks of bleeding, infection, perforation and medication reaction. Consent is signed and secured. The patient was brought to the procedure room. After the patient was intubated and sedated by Anesthesia, an Olympus duodenoscope inserted through the mouth. This was passed all the way down into the duodenum without any problem. ampulla appeared to be normal. The bile duct was cannulated using the sphincterotome. Wire was inserted into the bile duct first. Bile duct measured actually about 5 mm. There was a small feeding defect noted in the lower part of the bile duct and subsequently a sphincterotomy was done and a balloon sweep, removed one stone from the bile duct. An occlusion cholangiogram shows no evidence of any filling defect left in the bile duct. The patient is without any problem. RECOMMENDATION: To continue current care. Postop care. Follow liver enzymes. Wally Morrow MD DHD/MODL /[id number] cc: Kael Barry MD
--- NOTE | 2020-02-06 19:00 | NUR ---
RECEIVED BEDSIDE SHIFT REPORT FROM PREVIOUS NURSE. CALL LIGHT WITHIN REACH. PATIENT IN BED.
[2020-02-06] MEDS ORDERED: FENTANYL CITRATE/PF 100MCG/2 ML INJ ONE (19:06)
[2020-02-06] MEDS ORDERED: MIDAZOLAM HCL 2 MG/2 ML VIAL ONE (19:06)
[2020-02-06] MEDS ORDERED: SUCCINYLCHOLINE CHLORIDE 20 MG/ML 10ML VIAL ONE (19:30)
[2020-02-06] MEDS ORDERED: LIDOCAINE HCL 2% LOCAL INJ 5 ML SDV VIAL INJ ONE (19:30)
[2020-02-06] MEDS ORDERED: SEVOFLURANE INHAL SOLN 250 ML PEN BTL ONE (19:30)
[2020-02-06] MEDS ORDERED: PROPOFOL IV EMULSION 10 MG/ML 20 ML VIAL ONE (19:30)
[2020-02-06] MEDS: PANTOPRAZOLE 40 MG 10ML VIAL IV SCH (21:11)
--- NOTE | 2020-02-06 21:22 | Progress Note ---
DATE: 02/06/2020 Medicine Progress Note SUBJECTIVE: The patient is doing well today. She underwent status post ERCP with a stone removed. She did well, follow her postprocedurally. She was afebrile, normotensive, respiratory rate is good. She was started on a diet. Discussed plan of care with nursing staff. PHYSICAL EXAMINATION: VITAL SIGNS: Temperature is 98.9, pulse 70, respiratory rate is 18, blood pressure 139/70, and pulse ox 98% on room air. GENERAL: Not in acute distress. Alert and oriented x3. Cooperative on examination. HEENT: Head; normocephalic, atraumatic. Eyes; pupils are equal, round, and reactive to light bilaterally. Extraocular movements intact bilaterally. Throat; no evidence of erythema or exudates in the posterior pharynx. Has poor dentition. NECK: Supple. Good range of motion. PULMONARY: Clear to auscultation bilaterally. No wheezing, no rales, no rhonchi, no crackles appreciated. CARDIOVASCULAR: Positive S1 and S2. No murmurs, rubs, or gallops appreciated. ABDOMEN: Soft, nondistended, and nontender to palpation. Bowel sounds present. MUSCULOSKELETAL: Strength is 5/5 throughout. No evidence of any muscle deficits on examination. No weakness appreciated. NEUROLOGIC: Cranial nerves 2 through 12 grossly intact. No evidence of any neurological deficits on exam. SKIN: Intact. Warm to touch. Good cap refill. PSYCHIATRIC: Normal affect and mood. EXTREMITIES: No edema. Good range of motion throughout. LABORATORY FINDINGS: Show white count 6.3, hemoglobin 11.7, hematocrit is 36, and platelets of 183. Chemistry; sodium 136, potassium 3.4, chloride 105, bicarb 21, anion gap of 13, BUN is 5, and creatinine is 0.61. Her LFTs; total bilirubin is downtrended to 1.1, AST is 85, ALT 121, and alkaline phosphatase 161. Albumin 3.1. IMAGING STUDIES: None. IMPRESSION: 1. Acute cholecystitis, status post laparoscopic cholecystectomy performed on 02/05/2020. 2. Status post ERCP with gallstones removed. 3. Nausea, vomiting, and dehydration-resolved. 4. Elevated transaminases, improving. 5. Hypertension. PLAN: At this time, postop day #1, doing very well. General Surgery is following. Diet has been advanced. Pain control. ERCP performed today. Postop day #0, stone removed, doing very well. Continue with IV antibiotic therapy. General Surgery and GI are following. Lovenox for DVT prophylaxis. Potential discharge home tomorrow once cleared by the consultants. MD GOLDEN Ridley/MONIKA /[id number]
[2020-02-07] VITALS: BP 144/80
[2020-02-07 04:00] VITALS: BP 149/83
[2020-02-07] MEDS: D5.45%NS/KCL 20MEQ 1,000 ML IV SCH ×2 (05:00→13:27)
[2020-02-07 05:02] LABS: BASOPHILS % 0.2 % (0.0-1.0); EOSINOPHILS # (AUTO) 0.1 (0.0-0.4); HEMATOCRIT 35.2 % (34.2-44.1); HEMOGLOBIN 11.5 g/dL (12.0-16.0); LYMPHOCYTES # (AUTO) 0.8 (1.0-3.2); LYMPHOCYTES % 16.4 % (18.0-39.1); MEAN CORPUSCULAR HEMOGLOBIN 29.7 pg (28-32); MEAN CORPUSCULAR HGB CONC 32.7 g/dL (31-35); MONOCYTES # (AUTO) 0.4 (0.2-0.8); MONOCYTES % 8.3 % (4.4-11.3); NEUTROPHILS # (AUTO) 3.7 (2.1-6.9); NEUTROPHILS % 73.9 % (38.7-80.0); PLATELET COUNT 172 x10e3/uL (140-360); RED BLOOD COUNT 3.87 x10e6/uL (3.6-5.1); RED CELL DISTRIBUTION WIDTH 13.2 % (11.7-14.4)
[2020-02-07 05:28] LABS: ALANINE AMINOTRANSFERASE 133 IU/L (0-55); ALBUMIN 2.9 g/dL (3.5-5.0); ALKALINE PHOSPHATASE 138 IU/L (40-150); ANION GAP 12.4 mmol/L (8-16); BLOOD UREA NITROGEN < 5 mg/dL (7-26); CALCIUM 7.8 mg/dL (8.4-10.2); CARBON DIOXIDE 23 mmol/L (22-29); CHLORIDE 106 mmol/L (98-107); CREATININE, SERUM 0.62 mg/dL (0.57-1.11); EST GLOMERULAR FILTRATION RATE > 60 ML/MIN (60-); GLUCOSE 109 mg/dL (74-118); POTASSIUM 3.4 mmol/L (3.5-5.1); SODIUM 138 mmol/L (136-145)
[2020-02-07 05:31] LABS: BUN/CREATININE RATIO 8 (6-25)
[2020-02-07] MEDS: METRONIDAZOLE 500MG/NS 100ML 100 ML IV SCH ×2 (05:52→14:00)
--- NOTE | 2020-02-07 07:14 | NUR ---
GAVE BEDSIDE SHIFT REPORT TO ONCOMING NURSE. CALL LIGHT WITHIN REACH. PATIENT IN BED. HOURLY ROUNDING PERFORMED.
[2020-02-07 08:00] VITALS: BP 117/71
[2020-02-07] MEDS: AMLODIPINE BESYLATE 5 MG TAB PO SCH (08:22)
[2020-02-07 08:25] VITALS: BP 117/71
[2020-02-07] MEDS ORDERED: POTASSIUM CHLORIDE 20 MEQ TAB CR PO SCH (09:00)
[2020-02-07] MEDS ORDERED: LEVAQUIN500 MG PO (12:46)
[2020-02-07] MEDS ORDERED: TYLENOL # 31 EA (12:47)
[2020-02-07 13:42] VITALS: BP 133/79
[2020-02-07] MEDS: CEFTRIAXONE SOD 1 GM/NS 50 ML 50 ML IV SCH (14:00)
[2020-02-07] MEDS ORDERED: ENOXAPARIN SOD INJ 40 MG/0.4 ML SYR SC SCH (17:00)
--- NOTE | 2020-02-08 01:23 | Discharge Summary ---
FINAL DISCHARGE DIAGNOSES: 1. Acute cholecystitis, status post laparoscopic cholecystectomy performed on 02/05/2020, status post endoscopic retrograde cholangiopancreatography performed on 02/06/2020. 2. Nausea, vomiting, and dehydration secondary to #1. 3. Elevated transaminases secondary to #1. 4. Hypertension. CONSULTANTS: 1. GI. 2. General Surgery. PHYSICAL EXAMINATION: VITAL SIGNS: Temperature is 97.4, pulse is 79, respiratory rate 18, blood pressure 132/79, pulse ox 99% on room air. LABORATORY FINDINGS: Show white count 4.9, hemoglobin 11.5, hematocrit is 35, platelets of 172. Chemistry; sodium 138, potassium 3.4 replaced, chloride 106, bicarb 20, anion gap of 12, BUN is 5, creatinine 0.62, glucose 29, calcium 10.8. LFTs were down trending. Total bilirubin 0.8. AST 84, ALT 132, alkaline phosphatase 138. Troponins were negative. Lipase was 19, albumin 2.9. Urinalysis negative. Urine drug screen negative. Coronavirus was detected. IMAGING STUDIES: Gallbladder ultrasound shows multiple gallstones, thickened wall, concerning for underlying cholecystitis. CT abdomen and pelvis findings concerning for acute cholecystitis. Chest x-ray, borderline cardiomegaly. ERCP x-ray noted. HOSPITAL COURSE: A 44-year-old female, who came into the ED with complaints of right upper quadrant abdominal pain, nausea, vomiting, decreased oral intake. Imaging studies consistent with acute cholecystitis. General Surgery and GI were consulted. The patient underwent status post laparoscopic cholecystectomy performed on 02/05/2020, by General Surgery. The patient did well postprocedurally. She had a cholangiogram intraoperatively, found to have evidence of stones in the common bile duct. GI was consulted. The patient underwent status post ERCP with gallstone retrieval on 02/06/2020. The patient did well with no complaints. She was on clear liquid diet, advanced to regular, which she tolerated well. Her nausea, vomiting, dehydration, all resolved. Her LFTs were down trending prior to being discharged. Her blood pressure was stable. She was cleared for discharge by General Surgery and GI. The patient was back to normal baseline. On the day of discharge, vital signs were stable, labs reviewed and stable. The patient was seen, evaluated, and examined thoroughly on the day of discharge. No other complaints. The patient verbalized understanding and agrees to plan of care to follow up with outpatient primary care physician in 1 week and General Surgery and GI in 1 to 2 weeks' time. MEDICATIONS: See med reconciliation form. DISPOSITION: Home. CONDITION: Stable. DIET: Heart healthy. In the event of any worsening symptoms, the patient was advised to come back to the ED for further evaluation. Discharge summary took greater than 35 minutes. MD GOLDEN Ridley/MODL /[id number]
--- NOTE | 2020-02-08 15:59 | Diagnostic Imaging Report ---
Fluoroscopic guidance for intraoperative cholangiogram Total fluoroscopy time: 30 seconds Total dose: 8.5 mGy Fluoroscopic guidance was provided in the operating room for intraoperative cholangiography. The radiologist was not present for this exam. Images demonstrate opacification of the common bile duct and proximal intrahepatic bile ducts. No extravasation of contrast. Images do not demonstrate contrast flow into the small bowel. For further details, please refer to the surgical operative report. Signed by: July Govea MD on 02/08/2020 3:55 PM
== END 2020-02-07 14:50 | disposition home or self-care (01) ==
LOC: ER 18:23 → ERHOLD 20:56 → MED/SURG 02-05 15:59
PROVIDERS: ADMIT Internal Medicine; ATTEND Internal Medicine
DX: K80.46 Calculus of bile duct with acute and chronic cholecystitis without obstruction (principal); N83.292 Other ovarian cyst, left side; N83.291 Other ovarian cyst, right side; I10 Essential (primary) hypertension; Z11.59 Encounter for screening for other viral diseases; E86.0 Dehydration
CPT/HCPCS: 36415 ×4; 43262; 43264; 47563; 49322; 71045; 74177; 74300; 74328; 76705; 80053 ×4; 80307; 81001; 81025; 82150; 82550; 82553; 83690; 84484; 85025 ×4; 88304; 93005; 96361; 99284; C1766; C9113 ×3; G0378 ×4; J0330 ×2; J0696 ×3; J1170 ×2; J1885 ×2; J2001 ×2; J2250 ×2; J2270 ×2; J2405 ×3; J2704 ×2; J2710; J3010 ×2; J7030; Q9967 ×3; U0002; 43260